=== PATIENT | female | born 1990 | race Caucasian/White ===

== ENCOUNTER 2020-02-16 23:21 | Observation (INO) ==
[2020-02-16] MEDS: *HR* HYDROmorphone (PF) 1 MG/ML SYRINGE IVP PRN ×3 (16:40→19:41)
[2020-02-16 17:14] LABS: Basophils # 0.1 K/mcL (0.0-0.2); Basophils % 0.4 %; Eosinophils % 0.3 %; Hematocrit 36.2 % (35.3-44.9); Hemoglobin 11.5 g/dL (11.5-15.4); Immature Granulocytes % 1.3 % (0-4); Lymphocytes % 14.1 %; Mean Corpuscular HGB Conc 31.8 g/dL (31.6-35.5); Mean Corpuscular Hemoglobin 28.3 pg (28.0-33.3); Mean Corpuscular Volume 88.9 fL (83.0-100.0); Mean Platelet Volume 9.7 fL (9.4-12.4); Monocytes # 0.6 K/mcL (0.0-1.3); Monocytes % 4.5 %; Platelet Count 332 K/mcL (140-400); Red Blood Count 4.07 M/mcL (3.82-4.97); Red Cell Distribution Width 13.8 % (11.5-14.5); Segmented Neutrophils % 79.4 %; White Blood Count 13.9 K/mcL (4.3-11.1)
[2020-02-16 17:32] LABS: Alanine Aminotransferase 10 Units/L (7-52); Albumin 3.5 g/dL (3.5-5.7); Albumin/Globulin Ratio 0.9 (1.1-2.2); Alkaline Phosphatase 73 Units/L (34-104); Aspartate Amino Transferase 14 Units/L (13-39); BUN/Creatinine Ratio 15 (6-26); Bilirubin,Total 0.5 mg/dL (0.3-1.0); Blood Urea Nitrogen 10 mg/dL (6-20); Calcium 8.6 mg/dL (8.6-10.3); Carbon Dioxide 22 mEq/L (23-29); Chloride 102 mEq/L (98-107); Globulin 3.9 g/dL (2.4-3.5); Glucose 89 mg/dL (70-105); Osmolality,Calculated 279 (280-300); Potassium 3.7 mEq/L (3.5-5.1); Sodium 135 mEq/L (136-145); Total Protein 7.4 g/dL (6.4-8.9); eGFR For African Americans > 60 (> 60); eGFR For Non-African Americans > 60 (> 60)
[~2020-02-16 23:21] MED LIST: *HR* FentaNYL (PF) 100 MCG/2 ML VIAL ONE; *HR* OxyCODONE/APAP 5/325 TABLET PO PRN; *HR* Propofol 200 MG/20 ML VIAL IVP ONE; *HR* Succinylcholine 200 MG/10 ML VIAL IVP ONE; Acetaminophen IV 1,000 MG/100 ML INFUS..BTL IVPB ONE; Dexamethasone 4 MG/ML VIAL ONE; Famotidine 20 MG/2 ML VIAL IVP ONE; Famotidine 20 MG/2 ML VIAL ONE; Lidocaine -MPF 2% 2 ML VIAL ONE; Ondansetron 4 MG/2 ML VIAL IVP PRN; Ondansetron 4 MG/2 ML VIAL ONE; Ringers Solution, Lactated 1,000 ML IVC SCH
[2020-02-16] MEDS ORDERED: *HR* HYDROmorphone (PF) 1 MG/ML SYRINGE IVP PRN (23:23)
[2020-02-16] MEDS ORDERED: Ringers Solution, Lactated 1,000 ML IVC SCH (23:23)
[2020-02-16] MEDS ORDERED: *HR* OxyCODONE/APAP 5/325 TABLET PO PRN (23:23)
[2020-02-16] MEDS ORDERED: Ondansetron 4 MG/2 ML VIAL IVP PRN (23:23)
[2020-02-16] MEDS ORDERED: Famotidine 20 MG/2 ML VIAL IVP ONE (23:23)
[2020-02-16] MEDS ORDERED: Acetaminophen IV 1,000 MG/100 ML INFUS..BTL IVPB ONE (23:23)
[2020-02-17] MEDS ORDERED: Acetaminophen 325 MG TABLET PO PRN (06:24)
[2020-02-17 07:27] VITALS: BP 97/59
== END 2020-02-17 12:05 | disposition home or self-care (01) ==
LOC: 1NENULAB → 1NENUOBS 23:21
PROVIDERS: ADMIT Student in an Organized Health Care Education/Training Program; ATTEND Student in an Organized Health Care Education/Training Program

== ENCOUNTER → 2020-05-08 00:10 | Observation (INO) ==
[2020-05-07 23:36] LABS: Basophils % 0.2 %; Eosinophils # 0.1 K/mcL (0.0-0.6); Eosinophils % 0.9 %; Hematocrit 30.3 % (35.3-44.9); Hemoglobin 9.5 g/dL (11.5-15.4); Immature Granulocytes % 1.1 % (0-4); Lymphocytes % 19.6 %; Mean Corpuscular HGB Conc 31.4 g/dL (31.6-35.5); Mean Corpuscular Hemoglobin 27.3 pg (28.0-33.3); Mean Corpuscular Volume 87.1 fL (83.0-100.0); Mean Platelet Volume 10.5 fL (9.4-12.4); Monocytes # 0.6 K/mcL (0.0-1.3); Monocytes % 6.2 %; Neutrophils # 7.2 K/mcL (1.6-8.9); Platelet Count 295 K/mcL (140-400); Red Blood Count 3.48 M/mcL (3.82-4.97); Red Cell Distribution Width 14.8 % (11.5-14.5)
[2020-05-07 23:46] LABS: Protein/Creatinine Ratio,Urine 0.23 mg/mg (0.00-0.20)
[2020-05-07 23:57] LABS: Alanine Aminotransferase 7 Units/L (7-52); Aspartate Amino Transferase 9 Units/L (13-39); BUN/Creatinine Ratio 17 (6-26); Blood Urea Nitrogen 8 mg/dL (6-20); Lactate Dehydrogenase 155 Units/L (140-271); Uric Acid 5.1 mg/dL (2.3-7.6); eGFR For African Americans > 60 (> 60); eGFR For Non-African Americans > 60 (> 60)
== END | disposition home or self-care (01) ==
LOC: 1NENULAB
PROVIDERS: ADMIT Obstetrics & Gynecology; ATTEND Obstetrics & Gynecology

== ENCOUNTER 2020-05-21 04:00 | Inpatient (IN) ==
[2020-05-21] MEDS ORDERED: *HR* FentaNYL (PF) 100 MCG/2 ML VIAL IVP PRN (04:50)
[2020-05-21] MEDS ORDERED: miSOPROStoL 25 MCG TABLET PO PRN (04:50)
[2020-05-21] MEDS ORDERED: Naloxone 0.4 MG/ML INJ IVP PRN (04:50)
[2020-05-21] MEDS ORDERED: Metoclopramide 10 MG/2 ML VIAL IVP PRN (04:50)
[2020-05-21] MEDS ORDERED: Famotidine 20 MG/2 ML VIAL IVP PRN (04:50)
[2020-05-21] MEDS ORDERED: Ondansetron 4 MG/2 ML VIAL IVP PRN (04:50)
[2020-05-21] MEDS ORDERED: Lidocaine 1% 20 ML MDV INFILT PRN (04:50)
[2020-05-21] MEDS ORDERED: Penicillin G Potassium 5,000,000 UNIT in 0.9 % Sodium Chloride Mini Bag 100 ML IVPB ONE (04:53)
[2020-05-21] MEDS ORDERED: Oxytocin 20 units/ LR 1000 mL 20 UNIT/1,000 ML BAG IVC SCH ×3 (05:00→20:21)
[2020-05-21] MEDS: Ringers Solution, Lactated 1,000 ML IVC SCH ×2 (05:12→15:02)
[2020-05-21 06:09] LABS: Basophils % 0.4 %; Eosinophils # 0.1 K/mcL (0.0-0.6); Hematocrit 30.4 % (35.3-44.9); Hemoglobin 9.6 g/dL (11.5-15.4); Immature Granulocytes % 0.7 % (0-4); Lymphocytes # 1.9 K/mcL (0.6-4.6); Lymphocytes % 22.8 %; Mean Corpuscular HGB Conc 31.6 g/dL (31.6-35.5); Mean Corpuscular Hemoglobin 27.7 pg (28.0-33.3); Mean Corpuscular Volume 87.6 fL (83.0-100.0); Mean Platelet Volume 10.7 fL (9.4-12.4); Monocytes # 0.5 K/mcL (0.0-1.3); Monocytes % 6.2 %; Neutrophils # 5.7 K/mcL (1.6-8.9); Platelet Count 270 K/mcL (140-400); Red Blood Count 3.47 M/mcL (3.82-4.97); Red Cell Distribution Width 14.8 % (11.5-14.5); Segmented Neutrophils % 68.9 %; White Blood Count 8.2 K/mcL (4.3-11.1)
[2020-05-21] MEDS ORDERED: NIFEdipine 10 MG CAPSULE PO ONE (06:14)
[2020-05-21 06:15] LABS: Amphetamine Screen,Urine Negative ng/mL (Cutoff=1000); Barbiturate Screen,Urine Negative ng/mL (Cutoff=200)
[2020-05-21] MEDS ORDERED: NIFEdipine XL (24 HR) 30 MG TAB.ER.24 PO ONE (06:15)
[2020-05-21 06:16] LABS: Benzodiazepines Screen,Urine Negative ng/mL (Cutoff=300); Cannabinoid Screen,Urine Negative ng/mL (Cutoff = 50); Cocaine Screen,Urine Negative ng/mL (Cutoff= 300); Opiate Screen,Urine Negative ng/mL (Cutoff=300); Phencyclidine Screen,Urine Negative ng/mL (Cutoff=25)
[2020-05-21 06:21] LABS: Protein/Creatinine Ratio,Urine 0.27 mg/mg (0.00-0.20)
[2020-05-21 06:27] LABS: Alanine Aminotransferase 5 Units/L (7-52); Aspartate Amino Transferase 10 Units/L (13-39); BUN/Creatinine Ratio 22 (6-26); Blood Urea Nitrogen 10 mg/dL (6-20); Lactate Dehydrogenase 151 Units/L (140-271); Uric Acid 5.4 mg/dL (2.3-7.6); eGFR For African Americans > 60 (> 60); eGFR For Non-African Americans > 60 (> 60)
[2020-05-21] MEDS ORDERED: EPHEDrine 50 MG/ML VIAL IVP PRN (08:09)
[2020-05-21] MEDS ORDERED: *HR* FentaNYL (PF) 100 MCG/2 ML VIAL EP ONE (08:09)
[2020-05-21] MEDS ORDERED: Bupivacaine-MPF 0.25% 10 ML VIAL EP ONE (08:09)
[2020-05-21] MEDS ORDERED: *HR* FentaNYL (PF) 100 MCG/2 ML VIAL ONE (08:10)
[2020-05-21] MEDS ORDERED: Bupivacaine-MPF 0.25% 10 ML VIAL ONE (08:10)
[2020-05-21] MEDS ORDERED: Epidural Premix (fent/bupiv) 110 ML EP SCH (08:15)
[2020-05-21] MEDS ORDERED: Acetaminophen 325 MG TABLET PO PRN ×2 (08:55→20:21)
[2020-05-21] MEDS: Penicillin G Potassium 2,500,000 UNIT/105 ML MLS IVPB SCH ×2 (09:21→15:01)
[2020-05-21] MEDS ORDERED: Acetaminophen 325 MG TABLET PO ONE (13:08)
[2020-05-21] MEDS ORDERED: Acetaminophen/Butalbital/CaffeineTABLET PO PRN (14:39)
[2020-05-21] MEDS ORDERED: Measles/Mumps/Rubella Vacc 0.5 ML VIAL SQ PRN (20:21)
[2020-05-21] MEDS ORDERED: Rho Immune Globulin 1,500 UNIT SYRINGE IM PRN (20:21)
[2020-05-21] MEDS ORDERED: Oxytocin 20 units/ LR 1000 mL 20 UNIT/1,000 ML BAG IVC ONE (20:21)
[2020-05-21] MEDS ORDERED: Benzocaine/Menthol 56 GM AEROSOL SPRAY TP PRN (20:21)
[2020-05-21] MEDS: Ibuprofen 600 MG TABLET PO PRN (23:21)
[2020-05-22] MEDS ORDERED: NIFEdipine 10 MG CAPSULE PO STA (04:11)
[2020-05-22] MEDS: Ibuprofen 600 MG TABLET PO PRN ×3 (05:48→17:44)
[2020-05-22] MEDS ORDERED: Calcium Gluconate 1,000 MG/10 ML VIAL IVP PRN (06:54)
[2020-05-22] MEDS ORDERED: Ringers Solution, Lactated 1,000 ML ONE (06:56)
[2020-05-22] MEDS ORDERED: Magnesium Sulf 20 gm/SW 500mL 20 GM/500 ML IV.SOLN IVC SCH (07:00)
[2020-05-22 08:24] LABS: Basophils % 0.2 %; Eosinophils # 0.1 K/mcL (0.0-0.6); Eosinophils % 0.6 %; Hematocrit 26.7 % (35.3-44.9); Hemoglobin 8.4 g/dL (11.5-15.4); Immature Granulocytes % 1.2 % (0-4); Lymphocytes # 1.9 K/mcL (0.6-4.6); Lymphocytes % 17.3 %; Mean Corpuscular HGB Conc 31.5 g/dL (31.6-35.5); Mean Corpuscular Hemoglobin 27.5 pg (28.0-33.3); Mean Corpuscular Volume 87.5 fL (83.0-100.0); Mean Platelet Volume 10.4 fL (9.4-12.4); Monocytes # 0.6 K/mcL (0.0-1.3); Monocytes % 5.6 %; Neutrophils # 8.1 K/mcL (1.6-8.9); Platelet Count 202 K/mcL (140-400); Red Blood Count 3.05 M/mcL (3.82-4.97); Segmented Neutrophils % 75.1 %; White Blood Count 10.8 K/mcL (4.3-11.1)
[2020-05-22] MEDS ORDERED: Prenatal Vit/FA 1 EACH TABLET PO SCH (09:00)
[2020-05-22 09:21] LABS: Alanine Aminotransferase 5 Units/L (7-52); Aspartate Amino Transferase 13 Units/L (13-39); BUN/Creatinine Ratio 14 (6-26); Blood Urea Nitrogen 6 mg/dL (6-20); Lactate Dehydrogenase 188 Units/L (140-271); eGFR For African Americans > 60 (> 60); eGFR For Non-African Americans > 60 (> 60)
[2020-05-23] MEDS: Ibuprofen 600 MG TABLET PO PRN (07:49)
[2020-05-23 08:50] VITALS: BP 137/96
== END 2020-05-23 10:45 | disposition home or self-care (01) | DRG 807 ==
LOC: 1NENULAB 04:08 → 1NENUOBS 22:20
PROVIDERS: ADMIT Obstetrics & Gynecology; ATTEND Obstetrics & Gynecology